=== PATIENT | male | born 1990 | race African-American/Black ===

== ENCOUNTER 2016-12-14 07:02 | Inpatient (IN) | payer OTHER ==
[2016-12-14] MEDS ORDERED: SODIUM CHLORIDE 0.9% 1000 ML INFUS.BAG IV STA (07:40)
[2016-12-14] MEDS ORDERED: ACETAMINOPHEN 1000 MG/100 ML VIAL (NON FORMULARY) IVPB ONE (07:44)
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
[2016-12-14] MEDS ORDERED: ACETAMINOPHEN INJECTION 100 ML IVPB ONE (08:05)
[2016-12-14 08:38] LABS: VENOUS PH 7.4 (7.32-7.42)
[2016-12-14 08:43] LABS: VENOUS BLOOD GAS HCO3 17.8 meq/L (19-25)
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
[2016-12-14 09:26] LABS: ALBUMIN 3.9 g/dl (3.4-5.0); ALK PHOS 88 U/L (45-117); ANION GAP 10 (8-16); BILIRUBIN,TOTAL 1.1 mg/dL (0.2-1.0); CALCIUM 9.1 mg/dL (8.5-10.1); CO2 21 mmol/L (21-32); COCKROFT - GAULT 260.99; CREATININE 0.7 mg/dL (0.7-1.3); GLUCOSE,RANDOM 85 mg/dL (74-106); SGOT/AST 62 U/L (15-37); SGPT/ALT 34 U/L (12-78); TOT PROT 8.3 g/dl (6.4-8.2)
[2016-12-14 09:37] LABS: INR 2.57 (0.82-1.09); PROTHROMBIN TIME (PATIENT) 28.8 SEC (9.98-11.88)
[2016-12-14 09:40] LABS: ACTIVATED PTT 49.5 SECONDS (26.9-34.4)
[2016-12-14] MEDS ORDERED: VANCOMYCIN 1,000 MG in DEXTROSE 5%-WATER - 250 ML IVPB ONE (10:32)
[2016-12-14] MEDS ORDERED: CEFTRIAXONE 1,000 MG in DEXTROSE 5%-WATER - 50 ML IVPB ONE (10:35)
[2016-12-14 10:38] LABS: URINE APPEARANCE TURBID; URINE BILIRUBIN NEGATIVE (NEGATIVE); URINE BLOOD NEGATIVE (NEGATIVE); URINE COLOR DKYELLOW; URINE GLUCOSE (UA) NEGATIVE (NEGATIVE); URINE KETONE NEGATIVE (NEGATIVE); URINE NITRITE NEGATIVE (NEGATIVE); URINE UROBILINOGEN NEGATIVE E.U./dl (0.2-1.0)
[2016-12-14 10:49] LABS: BASOPHIL 0.8 % (0-2.0); MCH 29.2 pg (25.7-33.7); MCHC 34.1 g/dl (32.0-35.9); MEAN CELL VOLUME 85.7 fl (80-96); MEAN PLT VOLUME 10.3 fl (7.5-11.1); NEUTROPHILS 64.3 % (42.8-82.8); PLATELET COUNT 293 K/MM3 (134-434); RDW 15.5 % (11.9-15.9); WHITE BLOOD COUNT 8.9 K/mm3 (4.0-10.0)
[2016-12-14 10:51] LABS: URINE LEUK ESTERASE 3+ (NEGATIVE); URINE PROTEIN 2+ (NEGATIVE)
[2016-12-14 10:56] LABS: URINE BACTERIA RARE /hpf (NONE SEEN); URINE MUCUS RARE; URINE RBC 7 /hpf (0-3); URINE WBC 130 /hpf (3-5)
[2016-12-14] MEDS ORDERED: VANCOMYCIN 1 GRAM (PRE-DOCKED) 250 ML IVPB ONE (11:02)
[2016-12-14] MEDS ORDERED: CEFTRIAXONE 50 ML ONE (11:02)
[2016-12-14] MEDS ORDERED: AZITHROMYCIN IVPB 500 MG in DEXTROSE 5%-WATER - 250 ML IVPB ONE (11:53)
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
--- NOTE | 2016-12-14 13:11 | EKG ---
Test Reason : Blood Pressure : / mmHG Vent. Rate : 070 BPM Atrial Rate : 070 BPM P-R Int : 178 ms QRS Dur : 094 ms QT Int : 364 ms P-R-T Axes : 055 -09 036 degrees QTc Int : 393 ms POOR DATA QUALITY, INTERPRETATION MAY BE ADVERSELY AFFECTED NORMAL SINUS RHYTHM T WAVE ABNORMALITY, CONSIDER ANTERIOR ISCHEMIA ABNORMAL ECG NO PREVIOUS ECGS AVAILABLE Confirmed by PARISH LONDONO, LIZZY ([id number]) on 12/14/2016 1:10:23 PM Referred By: Confirmed By:LIZZY LUGO MD
[2016-12-14] MEDS ORDERED: KETOROLAC TROMETHAMINE 15 MG/ML VIAL IVPUSH ONE (13:28)
[2016-12-14] MEDS ORDERED: oxyCODONE HCL 5 MG TABLET PO ONE (13:28)
[2016-12-14] MEDS ORDERED: SODIUM CHLORIDE 1,000 ML IV SCH (13:45)
[2016-12-14] MEDS ORDERED: METOCLOPRAMIDE HCL INJECTION 10 MG/2 ML VIAL IVPB PRN (14:05)
[2016-12-14] MEDS ORDERED: AZITHROMYCIN IVPB 250 ML IVPB ONE (15:30)
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
[2016-12-14 17:22] VITALS: BMI 35.4
[2016-12-14] MEDS: IPRATROPIUM BR 0.02% 0.5 MG/2.5 ML VIAL.NEB. NEB SCH (18:21)
[2016-12-14] MEDS: WARFARIN NA 2 MG TABLET (UD) PO SCH (19:30)
[2016-12-14] MEDS: GABAPENTIN 300 MG CAPSULE (FP) PO SCH (22:14)
[2016-12-14] MEDS: DOCUSATE SODIUM 100 MG CAPSULE (FP) PO SCH (22:14)
[2016-12-14] MEDS ORDERED: BACLOFEN 10 MG TABLET (FP) PO ONE (22:17)
[2016-12-15] MEDS: IPRATROPIUM BR 0.02% 0.5 MG/2.5 ML VIAL.NEB. NEB SCH ×5 (00:10→22:41)
[2016-12-15 08:11] LABS: BASOPHIL 0.5 % (0-2.0); EOSINOPHIL 1.9 % (0-4.5); MCH 29.4 pg (25.7-33.7); MCHC 34.6 g/dl (32.0-35.9); MEAN CELL VOLUME 84.9 fl (80-96); MEAN PLT VOLUME 10.1 fl (7.5-11.1); NEUTROPHILS 66.2 % (42.8-82.8); PLATELET COUNT 249 K/MM3 (134-434); RDW 15.5 % (11.9-15.9); WHITE BLOOD COUNT 7.2 K/mm3 (4.0-10.0)
[2016-12-15] MEDS ORDERED: IPRATROPIUM BR 0.02% 0.5 MG/2.5 ML VIAL.NEB. NEB PRN ×2 (08:16→12:02)
[2016-12-15 08:31] LABS: PROTHROMBIN TIME (PATIENT) 33.7 SEC (9.98-11.88)
[2016-12-15 08:42] LABS: ALBUMIN 3.4 g/dl (3.4-5.0); ANION GAP 12 (8-16); CALCIUM 9.1 mg/dL (8.5-10.1); CO2 20 mmol/L (21-32); GLUCOSE,RANDOM 90 mg/dL (74-106)
[2016-12-15 08:47] LABS: ALK PHOS 83 U/L (45-117); BILIRUBIN,TOTAL 0.7 mg/dL (0.2-1.0); COCKROFT - GAULT 326.87; CREATININE 0.6 mg/dL (0.7-1.3); SGOT/AST 39 U/L (15-37); SGPT/ALT 29 U/L (12-78); TOT PROT 7.5 g/dl (6.4-8.2)
[2016-12-15] MEDS ORDERED: IPRATROPIUM BR 0.02% 0.5 MG/2.5 ML VIAL.NEB. NEB ONE (09:00)
[2016-12-15] MEDS ORDERED: PT OWN MED DRAWER 7, Y5N ONE (09:21)
[2016-12-15] MEDS: DOCUSATE SODIUM 100 MG CAPSULE (FP) PO SCH ×4 (09:24→22:13)
[2016-12-15] MEDS: RANITIDINE HCL 150 MG TABLET (FP) PO SCH (09:24)
[2016-12-15] MEDS: GABAPENTIN 300 MG CAPSULE (FP) PO SCH ×3 (09:25→22:13)
[2016-12-15] MEDS: SENNOSIDES 8.6MG TABLET (FP) PO SCH ×2 (09:25→09:30)
[2016-12-15] MEDS: BACLOFEN 10 MG TABLET (FP) PO SCH (09:25)
[2016-12-15] MEDS: CEFTRIAXONE 50 ML IVPB SCH (09:28)
[2016-12-15] MEDS ORDERED: AZITHROMYCIN IVPB 250 MG in DEXTROSE 5%-WATER - 250 ML IVPB SCH (10:00)
[2016-12-15] MEDS: ACETAMINOPHEN 325 MG TABLET (FP) PO PRN (11:15)
--- NOTE | 2016-12-15 11:53 | PN ---
Progress Note (short form) - Note Progress Note: Awake and alert on vent. Still with some congested cough. Intake & Output 12/12/16 12/13/16 12/14/16 12/15/16 23:59 23:59 23:59 23:59 Intake Total 1720 300 Output Total 650 650 Balance 1070 -350 Weight 268 lb 6 oz Last Vital Signs Temp Pulse Resp BP Pulse Ox 98.4 F 87 25 H 122/64 98 12/15/16 09:16 12/15/16 09:59 12/15/16 09:59 12/15/16 09:16 12/15/16 09:59 Active Medications Acetaminophen (Tylenol -) 650 mg PO Q4H PRN PRN Reason: FEVER OR PAIN Last Admin: 12/15/16 11:15 Dose: 650 mg Baclofen (Lioresal -) 10 mg PO DAILY [facility] Last Admin: 12/15/16 09:25 Dose: 10 mg Diphenhydramine HCl (Benadryl Injection -) 12.5 mg IVPUSH Q6H PRN PRN Reason: HEADACHE Docusate Sodium (Colace -) 100 mg PO BID [facility] Last Admin: 12/15/16 09:24 Dose: 100 mg Gabapentin (Neurontin -) 300 mg PO BID [facility] Last Admin: 12/15/16 09:25 Dose: 300 mg Azithromycin 250 mg/ Dextrose 250 mls @ 250 mls/hr IVPB DAILY [facility] Stop: 12/18/16 10:59 Last Admin: 12/15/16 11:04 Dose: 250 mls/hr Ceftriaxone Sodium (Rocephin 1gm Ivpb (Pre-Docked)) 50 mls @ 100 mls/hr IVPB DAILY [facility] Last Admin: 12/15/16 09:28 Dose: 100 mls/hr Ipratropium [place] (Atrovent 0.02% Nebulizer -) 1 amp NEB QIDR [facility] Last Admin: 12/15/16 11:36 Dose: 1 amp Metoclopramide HCl (Reglan Injection -) 10 mg IVPB Q6H PRN PRN Reason: HEADACHE Ranitidine HCl (Zantac -) 150 mg PO DAILY [facility] Last Admin: 12/15/16 09:24 Dose: 150 mg Senna (Senna -) 1 tab PO DAILY [facility] Last Admin: 12/15/16 09:25 Dose: 1 tab Warfarin Sodium (Coumadin -) 4 mg PO DAILY@1800 JERRY Last Admin: 12/14/16 19:30 Dose: 4 mg Constitutional: Yes: Awake and alert, NAD on vent Eyes: Yes: EOM Intact HENT: Yes: Normocephalic Neck: Yes: TRACH Cardiovascular: Yes: S1, S2 Respiratory: Yes: Diminished, few adventitious sounds Gastrointestinal: Yes: Abdomen, Obese Edema: No Integumentary: Yes: WNL Neurological: Yes: Alert Psychiatric: Yes: Alert Labs: Laboratory Results - last 24 hr 12/14/16 12/14/16 12/14/16 08:33 12:30 16:45 WBC RBC Hgb Hct MCV MCHC RDW Plt Count MPV Neutrophils % Lymphocytes % Monocytes % Eosinophils % Basophils % INR Sodium Potassium Chloride Carbon Dioxide Anion Gap BUN Creatinine Creat Clearance w eGFR Random Glucose Lactic Acid 2.418 H* 1.415 Calcium Total Bilirubin AST ALT Alkaline Phosphatase Total Protein Albumin Ur Specific Hernandez 1.015 12/15/16 12/15/16 12/15/16 07:00 07:00 07:00 WBC 7.2 RBC 4.88 Hgb 14.4 Hct 41.5 MCV 84.9 MCHC 34.6 RDW 15.5 Plt Count 249 MPV 10.1 Neutrophils % 66.2 Lymphocytes % 23.8 Monocytes % 7.6 Eosinophils % 1.9 Basophils % 0.5 INR 3.00 H Sodium 141 Potassium 3.7 Chloride 109 H Carbon Dioxide 20 L Anion Gap 12 BUN 7 D Creatinine 0.6 L Creat Clearance w eGFR > 60 Random Glucose 90 Lactic Acid Calcium 9.1 Total Bilirubin 0.7 D AST 39 H D ALT 29 Alkaline Phosphatase 83 Total Protein 7.5 Albumin 3.4 Ur Specific Hernandez Problem List - Problems (1) Headache Code(s): R51 - HEADACHE (2) Quadriplegia Code(s): G82.50 - QUADRIPLEGIA, UNSPECIFIED (3) Ventilator dependence Code(s): Z99.11 - DEPENDENCE ON RESPIRATOR [VENTILATOR] STATUS Assessment/Plan Current vent settings Can wean as tolerated Brovana + atrovent Patient defers the use of Albuterol since he deve,ops palpitations ABX Suction as needed If he remains stable overnight -> Can likely change to oral ABX and D/C tomorrow Dr Marsh
[2016-12-15] MEDS: ARFORMOTEROL TARTRATE 15 MCG/2 ML VIAL NEB SCH ×2 (12:20→22:41)
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
[2016-12-15] MEDS ORDERED: PROCHLORPERAZINE INJECTION 10 MG/2 ML VIAL IVPB ONE (14:29)
[2016-12-15] MEDS ORDERED: SODIUM PHOSPHATE/NA BIPHOS 133 ML ENEMA PR ONE (14:38)
[2016-12-15] MEDS ORDERED: WARFARIN NA 2 MG TABLET (UD) PO SCH (18:00)
[2016-12-15] MEDS: WARFARIN NA 2 MG TABLET (UD) PO SCH (18:50)
[2016-12-16] MEDS: ACETAMINOPHEN 325 MG TABLET (FP) PO PRN (01:19)
[2016-12-16 09:50] LABS: INR 2.97 (0.82-1.09)
[2016-12-16 09:52] LABS: ACTIVATED PTT 49.9 SECONDS (26.9-34.4)
[2016-12-16] MEDS: DOCUSATE SODIUM 100 MG CAPSULE (FP) PO SCH ×2 (09:59→22:31)
[2016-12-16] MEDS: RANITIDINE HCL 150 MG TABLET (FP) PO SCH (09:59)
[2016-12-16] MEDS: BACLOFEN 10 MG TABLET (FP) PO SCH (09:59)
[2016-12-16] MEDS: SENNOSIDES 8.6MG TABLET (FP) PO SCH (09:59)
[2016-12-16] MEDS: CEFTRIAXONE 50 ML IVPB SCH (09:59)
[2016-12-16] MEDS: GABAPENTIN 300 MG CAPSULE (FP) PO SCH ×2 (09:59→22:31)
[2016-12-16] MEDS: ARFORMOTEROL TARTRATE 15 MCG/2 ML VIAL NEB SCH ×2 (10:28→22:53)
[2016-12-16] MEDS: IPRATROPIUM BR 0.02% 0.5 MG/2.5 ML VIAL.NEB. NEB SCH ×2 (10:28→22:53)
[2016-12-16 10:30] LABS: COCKROFT - GAULT 392.25; CREATININE 0.5 mg/dL (0.7-1.3)
--- NOTE | 2016-12-16 11:31 | DS ---
Physical Exam: SUBJECTIVE: Patient seen and examined OBJECTIVE: Vital Signs Period Temp Pulse Resp BP Sys/Wood Pulse Ox Last 24 Hr 98.1 F-99.0 F 65-97 18-24 115-154/52-85 PHYSICAL EXAM GENERAL: The patient is awake, alert, and fully oriented, in no acute distress. HEAD: Normal with no signs of trauma. EYES: PERRL, extraocular movements intact, sclera anicteric, conjunctiva clear. ENT: Ears normal, nares patent, oropharynx clear without exudates, moist mucous membranes. NECK: Trachea midline, full range of motion, supple. LUNGS: Breath sounds equal, clear to auscultation bilaterally, no wheezes, no crackles, no accessory muscle use. HEART: Regular rate and rhythm, S1, S2 without murmur, rub or gallop. ABDOMEN: Soft, nontender, nondistended, normoactive bowel sounds, no guarding, no rebound, no hepatosplenomegaly, no masses. EXTREMITIES: 2+ pulses, warm, well-perfused, no edema. NEUROLOGICAL: Cranial nerves II through XII grossly intact. Normal speech, gait not observed. PSYCH: Normal mood, normal affect. SKIN: Warm, dry, normal turgor, no rashes or lesions noted. LABS Laboratory Results - last 24 hr 12/16/16 12/16/16 08:00 08:00 INR 2.97 H PTT (Actin FS) 49.9 H Fibrinogen 397.0 Fibrin Degrad Products Less than 10 Sodium 141 Potassium 3.6 Chloride 109 H Carbon Dioxide 19 L Anion Gap 13 BUN 9 D Creatinine 0.5 L Random Glucose 78 Calcium 9.0 HOSPITAL COURSE: Date of Admission:12/14/16 Date of Discharge: 12/16/16 Discharge Summary Reason For Visit: PNEUMONIA Current Active Problems DVT prophylaxis (Acute) Headache (Acute) Pneumonia (Acute) Quadriplegia (Acute) UTI (urinary tract infection) (Acute) Ventilator dependence (Acute) Condition: Stable - Home Medications Comprehensive Discharge Medication List: Ambulatory Orders Baclofen 20 mg PO TID 12/14/16 Docusate Sodium [Colace -] 100 mg PO BID 12/14/16 Gabapentin 600 mg PO TID 12/14/16 Ranitidine HCl 150 mg PO DAILY 12/14/16 Sennosides [Senna] 8.6 mg PO HS MDD 2 tablets 12/14/16 Warfarin Sodium 4 mg PO DAILY 12/14/16 Fleet Adult Rectal Enema - 1 bottle MD Q2D 12/15/16 Multivitamin 1 tablet PO ONCE 12/15/16 Vitamin C 500 mg PO BID 12/15/16
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
[2016-12-16 16:09] LABS: MCH 28.3 pg (25.7-33.7); MCHC 32.9 g/dl (32.0-35.9); MEAN CELL VOLUME 86.2 fl (80-96); MEAN PLT VOLUME 10.5 fl (7.5-11.1); PLATELET COUNT 257 K/MM3 (134-434); RDW 15.7 % (11.9-15.9); WHITE BLOOD COUNT 5.2 K/mm3 (4.0-10.0)
[2016-12-16] MEDS: WARFARIN NA 2 MG TABLET (UD) PO SCH (17:48)
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
[2016-12-16 20:50] LABS: PLATELET ESTIMATE ADEQUATE (NORMAL)
[2016-12-17] MEDS: IPRATROPIUM BR 0.02% 0.5 MG/2.5 ML VIAL.NEB. NEB SCH (09:33)
[2016-12-17] MEDS: ARFORMOTEROL TARTRATE 15 MCG/2 ML VIAL NEB SCH (09:34)
[2016-12-17] MEDS ORDERED: PT OWN MED DRAWER 7, Y5N ONE (10:27)
[2016-12-17] MEDS: CEFTRIAXONE 50 ML IVPB SCH (10:30)
[2016-12-17] MEDS: RANITIDINE HCL 150 MG TABLET (FP) PO SCH (10:30)
[2016-12-17] MEDS: SENNOSIDES 8.6MG TABLET (FP) PO SCH (10:30)
[2016-12-17] MEDS: DOCUSATE SODIUM 100 MG CAPSULE (FP) PO SCH (10:30)
[2016-12-17] MEDS: BACLOFEN 10 MG TABLET (FP) PO SCH (10:30)
[2016-12-17] MEDS: GABAPENTIN 300 MG CAPSULE (FP) PO SCH (10:30)
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
[2016-12-17 15:46] VITALS: BP 108/53; PULSE 93; TEMP 99.1
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
== END 2016-12-17 17:00 | disposition home or self-care (01) | DRG 466 ==
LOC: JER 07:02 → JERBED 10:37 → J5S 12:54
PROVIDERS: ADMIT Internal Medicine; ATTEND Internal Medicine
PROC: 5A1945Z Respiratory Ventilation, 24-96 Consecutive Hours (ICD-10-PCS; principal; 2016-12-14)
DX: T83.511A Infection and inflammatory reaction due to indwelling urethral catheter, initial encounter (principal); N39.0 Urinary tract infection, site not specified; Y84.6 Urinary catheterization as the cause of abnormal reaction of the patient, or of later complication, without mention of misadventure at the time of the procedure; G82.50 Quadriplegia, unspecified; S14.159S Other incomplete lesion at unspecified level of cervical spinal cord, sequela; Y24.9XXS Unspecified firearm discharge, undetermined intent, sequela; R51 Headache; Z99.11 Dependence on respirator [ventilator] status; J98.11 Atelectasis; Z86.718 Personal history of other venous thrombosis and embolism; Z79.01 Long term (current) use of anticoagulants; J96.10 Chronic respiratory failure, unspecified whether with hypoxia or hypercapnia; Z93.0 Tracheostomy status
CPT/HCPCS: 36415; 71010-TC; 80048; 80053; 81003; 81015; 82803; 83605; 85025; 85362; 85384; 85610; 85730; 87040; 87070; 87086; 87186; 87205; 93005; 93010; 94002; 94640; 99285-25; J0475

== ENCOUNTER 2020-06-07 21:54 | Inpatient (IN) | payer OTHER ==
[2020-06-07 22:20] LABS: ARTERIAL BLD GAS O2 SATURATION 98.2 mmHg (95-98); ARTERIAL BLOOD GAS BASE EXCESS -6.1 mmol/L (-2-2); ARTERIAL BLOOD GAS PO2 118.2 mmHg (80-100); ARTERIAL BLOOD GAS pH 7.365 (7.350-7.450)
[2020-06-07 22:21] LABS: ALLENS TEST POSITIVE; BASO % 0.3 % (0-2.0); EOS % 0.2 % (0-4.5); HEMATOCRIT 36.9 % (35.4-49); HEMOGLOBIN 12.4 GM/dL (11.7-16.9); LYMPH % 3.7 % (8-40); MCH 29.5 pg (25.7-33.7); MCHC 33.7 g/dl (32.0-35.9); MEAN CELL VOLUME 87.6 fl (80-96); MONO % 5.9 % (3.8-10.2); NEUT % 89.9 % (42.8-82.8); PLATELET COUNT 293 K/MM3 (134-434); PT'S TEMP 98.6; RBC 4.21 M/mm3 (4.00-5.60); RDW 16.1 % (11.9-15.9); WHITE BLOOD COUNT 22.9 K/mm3 (4.0-10.0)
[2020-06-07] MEDS ORDERED: ACETAMINOPHEN INJECTION 100 ML IVPB ONE (22:21)
[2020-06-07 22:22] LABS: VENT RATE 14
[2020-06-07] MEDS ORDERED: VANCOMYCIN 1 GM in D5W (PRE-DOCKED) 1,000 MG/250 ML IVPB ONE (22:37)
[2020-06-07] MEDS ORDERED: SODIUM CHLORIDE 0.9% 500 ML INFUS.BAG IV ONE (22:37)
[2020-06-07] MEDS ORDERED: ACETAMINOPHEN 1000 MG/100 ML VIAL (NON FORMULARY) IVPB ONE (22:37)
[2020-06-07] MEDS ORDERED: PIPERACILLIN/TAZOB 3.375 GM 3.375 GM in DEXTROSE 5%-WATER - 50 ML IVPB ONE (22:37)
[2020-06-07 22:41] LABS: INR 1.99 (0.83-1.09); PROTHROMBIN TIME (PATIENT) 23.6 SEC (9.7-13.0)
[2020-06-07 22:42] LABS: POTASSIUM 3.4 mmol/L (3.5-5.1)
[2020-06-07 22:43] LABS: ACTIVATED PTT 35.4 SECONDS (25.2-36.5)
[2020-06-07 22:44] LABS: ALBUMIN 3.2 g/dl (3.4-5.0); BLOOD UREA NITROGEN 27.8 mg/dL (7-18); CALCIUM 8.5 mg/dL (8.5-10.1)
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
[2020-06-07 22:47] LABS: CREATININE 2.6 mg/dL (0.55-1.3)
[2020-06-07 22:49] LABS: EPI CELLS 9 /uL (0-25.1); HYALINE CASTS 15 /uL (0-3.1); PH,URINE 5.5 (5.0-8.0); URINE APPEARANCE TURBID; URINE BILIRUBIN 1+ (NEGATIVE); URINE COLOR ORANGE; URINE GLUCOSE (UA) NEGATIVE (NEGATIVE); URINE KETONE NEGATIVE (NEGATIVE); URINE LEUK ESTERASE 3+ (NEGATIVE); URINE NITRITE NEGATIVE (NEGATIVE); URINE PROTEIN 3+ (NEGATIVE); URINE WBC 14751 /uL (0-25.8)
[2020-06-07 22:49] LABS: BILIRUBIN,TOTAL 3.2 mg/dL (0.2-1); TOT PROT 7.5 g/dl (6.4-8.2)
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
[2020-06-07] MEDS ORDERED: VANCOMYCIN 1 GRAM (PRE-DOCKED) 1,000 MG/250 ML BAG IVPB ONE (22:50)
[2020-06-07] MEDS ORDERED: PIPERACILLIN/TAZOB 3.375 GM 3.375 GM/50 ML BAG IVPB ONE (22:51)
[2020-06-07 23:12] LABS: URINE BACTERIA 3459.6 /uL (0-1359); URINE RBC 3551.8 /uL (0-23.9); YEAST NEGATIVE (NEGATIVE)
[2020-06-07 23:19] LABS: ANISOCYTOSIS 0; HELMET CELLS 0; HOWELL-JOLLY BODIES 0; MACROCYTOSIS 0; OVALOCYTE 0; PLATELET ESTIMATE NORMAL; ROULEAU 0; SICKELED CELLS 0; TARGET CELLS 0; TEAR DROP CELLS 0; TOXIC GRANULATION 0
[2020-06-08] MEDS ORDERED: SODIUM CHLORIDE 0.9% 500 ML INFUS.BAG IV ONE (00:11)
[2020-06-08] MEDS ORDERED: VANCOMYCIN 1,000 MG in DEXTROSE 5%-WATER - 250 ML IVPB ONE ×2 (00:54→06:00)
[2020-06-08] MEDS ORDERED: KCL 10 MEQ IVPB 10 MEQ/100 ML INFUS.BAG IVPB SCH (01:00)
[2020-06-08] MEDS ORDERED: KCL 10 MEQ IVPB 10 MEQ/100 ML INFUS.BAG IVPB ONE (01:13)
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
[2020-06-08] MEDS ORDERED: SODIUM CHLORIDE 1,000 ML IV STA (03:17)
[2020-06-08] MEDS ORDERED: ACETAMINOPHEN 1000 MG/100 ML VIAL (NON FORMULARY) IVPB PRN (03:17)
[2020-06-08] MEDS: SODIUM CHLORIDE 1,000 ML IV SCH (03:26)
[2020-06-08] MEDS: NOREPINEPHRINE NS PREMIX 8,000 MCG/500 ML BAG IVPB SCH ×2 (03:53→23:08)
[2020-06-08] MEDS ORDERED: PIPERACILLIN/TAZOBACTAM 3.375 GM VIAL IVPB ONE ×2 (05:43→09:22)
[2020-06-08] MEDS ORDERED: DEXTROSE 5%-WATER - 50 ML IVPB ONE ×2 (05:43→09:22)
[2020-06-08] MEDS: PIPERACILLIN/TAZOB 3.375 GM 3.375 GM in DEXTROSE 5%-WATER - 50 ML IVPB SCH ×2 (05:45→09:27)
[2020-06-08] MEDS ORDERED: HEPARIN NA (PORCINE) 5,000 UNITS/ML 1ML VIAL SQ SCH (06:00)
[2020-06-08 06:22] LABS: BASO % 0.2 % (0-2.0); HEMATOCRIT 33.7 % (35.4-49); HEMOGLOBIN 11.2 GM/dL (11.7-16.9); LYMPH % 1.6 % (8-40); MCH 28.8 pg (25.7-33.7); MCHC 33.1 g/dl (32.0-35.9); MEAN CELL VOLUME 87.1 fl (80-96); MEAN PLT VOLUME 10.3 fl (7.5-11.1); MONO % 5.4 % (3.8-10.2); NEUT % 92.8 % (42.8-82.8); PLATELET COUNT 267 K/MM3 (134-434); RBC 3.87 M/mm3 (4.00-5.60); WHITE BLOOD COUNT 25.1 K/mm3 (4.0-10.0)
[2020-06-08 06:26] LABS: INR 2.15 (0.83-1.09); PROTHROMBIN TIME (PATIENT) 25.4 SEC (9.7-13.0)
[2020-06-08 06:43] LABS: CALCIUM 8.3 mg/dL (8.5-10.1)
[2020-06-08 06:44] LABS: ALBUMIN 2.9 g/dl (3.4-5.0); BLOOD UREA NITROGEN 28.8 mg/dL (7-18); MAGNESIUM 1.5 mg/dL (1.8-2.4)
[2020-06-08 06:47] LABS: CREATININE 2.4 mg/dL (0.55-1.3); PHOSPHOROUS 5.1 mg/dL (2.5-4.9)
[2020-06-08 06:48] LABS: BILIRUBIN,TOTAL 2.8 mg/dL (0.2-1); TOT PROT 6.9 g/dl (6.4-8.2)
[2020-06-08] MEDS ORDERED: MAGNESIUM 2GM/50ML STERILE WATER IVPB IVPB ONE (09:30)
--- NOTE | 2020-06-08 09:56 | EKG ---
Test Reason : Blood Pressure : / mmHG Vent. Rate : 103 BPM Atrial Rate : 103 BPM P-R Int : 156 ms QRS Dur : 100 ms QT Int : 332 ms P-R-T Axes : 057 015 033 degrees QTc Int : 434 ms SINUS TACHYCARDIA POSSIBLE LEFT ATRIAL ENLARGEMENT INCOMPLETE RIGHT BUNDLE BRANCH BLOCK BORDERLINE ECG WHEN COMPARED WITH ECG OF 07-JUN-2020 22:20, NO SIGNIFICANT CHANGE WAS FOUND Confirmed by YAIR PRO MD ([id number]) on 06/08/2020 9:56:31 AM Referred By: Confirmed By:YAIR PRO MD
[2020-06-08 09:58] LABS: ANISOCYTOSIS 0; MACROCYTOSIS 0; PLATELET ESTIMATE NORMAL
[2020-06-08] MEDS ORDERED: VANCOMYCIN 1 GRAM (PRE-DOCKED) 1,000 MG/250 ML BAG IVPB SCH (10:00)
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
[2020-06-08] MEDS: MUPIROCIN 2% TOPICAL OINTMENT FOR DECOLONIZATION NS SCH ×2 (11:00→22:33)
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
[2020-06-08] MEDS: BACLOFEN 10 MG TABLET (FP) PO SCH ×2 (15:15→22:34)
[2020-06-08] MEDS: GABAPENTIN 300 MG CAPSULE PO SCH ×2 (15:16→22:34)
[2020-06-08] MEDS ORDERED: MEROPENEM 1 GM VIAL (RESTRICTED TO ID) IVPB ONE (15:39)
[2020-06-08] MEDS ORDERED: DEXTROSE 5%-WATER 100 ML IVPB ONE (15:39)
[2020-06-08] MEDS: MEROPENEM 1 GM in DEXTROSE 5%-WATER 100 ML IVPB SCH (15:55)
[2020-06-08] MEDS ORDERED: PT OWN MED DRAWER 7, Y5N ONE ×2 (16:15→21:59)
[2020-06-08] MEDS ORDERED: SODIUM CHLORIDE 500 ML IV STA (18:34)
[2020-06-08] MEDS ORDERED: PIPERACILLIN/TAZOB 3.375 GM 3.375 GM in DEXTROSE 5%-WATER - 50 ML IVPB SCH (22:00)
[2020-06-08] MEDS: CHLORHEXIDINE GLUCONATE 4% CLEANSER FOR DECOLONIZATION TP SCH (22:34)
[2020-06-08] MEDS: APIXABAN 5 MG TABLET PO SCH (22:34)
[2020-06-08] MEDS ORDERED: NOREPINEPHRINE BITARTRATE 8,000 MCG/500 ML BAG IVPB ONE (22:57)
[2020-06-09] MEDS ORDERED: DEXTROSE 5%-WATER 100 ML IVPB ONE ×3 (01:07→18:24)
[2020-06-09] MEDS ORDERED: MEROPENEM 1 GM VIAL (RESTRICTED TO ID) IVPB ONE ×3 (01:07→18:23)
[2020-06-09] MEDS: MEROPENEM 1 GM in DEXTROSE 5%-WATER 100 ML IVPB SCH ×3 (01:10→18:27)
[2020-06-09] MEDS: SODIUM CHLORIDE 1,000 ML IV SCH ×2 (01:10→09:02)
[2020-06-09] MEDS ORDERED: ACETAMINOPHEN 1000 MG/100 ML VIAL (NON FORMULARY) IVPB PRN (02:56)
[2020-06-09] MEDS ORDERED: LORazepam 2 MG/ML SDV VIAL ONE ×2 (03:08→13:23)
[2020-06-09] MEDS ORDERED: LORazepam 2 MG/ML SDV VIAL IVPUSH ONE ×2 (03:13→13:12)
[2020-06-09 03:54] LABS: ARTERIAL BLD GAS O2 SATURATION 98.5 mmHg (95-98); ARTERIAL BLOOD GAS BASE EXCESS -8.2 mmol/L (-2-2); ARTERIAL BLOOD GAS PO2 141.6 mmHg (80-100); ARTERIAL BLOOD GAS pH 7.286 (7.350-7.450)
[2020-06-09 03:55] LABS: ALLENS TEST POSITIVE; VENT MODE A/C; VENT RATE 14
[2020-06-09] MEDS: BACLOFEN 10 MG TABLET (FP) PO SCH ×3 (05:14→21:16)
[2020-06-09] MEDS: GABAPENTIN 300 MG CAPSULE PO SCH ×3 (05:15→21:16)
[2020-06-09 07:08] LABS: BASO % 0.4 % (0-2.0); EOS % 0.9 % (0-4.5); HEMATOCRIT 34.9 % (35.4-49); HEMOGLOBIN 11.5 GM/dL (11.7-16.9); LYMPH % 2.7 % (8-40); MCH 28.5 pg (25.7-33.7); MCHC 32.9 g/dl (32.0-35.9); MEAN CELL VOLUME 86.9 fl (80-96); MEAN PLT VOLUME 10.1 fl (7.5-11.1); MONO % 7.5 % (3.8-10.2); NEUT % 88.5 % (42.8-82.8); PLATELET COUNT 249 K/MM3 (134-434); RBC 4.02 M/mm3 (4.00-5.60); RDW 16.6 % (11.9-15.9)
[2020-06-09 07:31] LABS: BLOOD UREA NITROGEN 25.6 mg/dL (7-18); POTASSIUM 3.9 mmol/L (3.5-5.1)
[2020-06-09 07:35] LABS: MAGNESIUM 2.1 mg/dL (1.8-2.4)
[2020-06-09 07:38] LABS: CREATININE 1.2 mg/dL (0.55-1.3); PHOSPHOROUS 3.4 mg/dL (2.5-4.9)
[2020-06-09 07:39] LABS: BILIRUBIN,TOTAL 1.3 mg/dL (0.2-1); TOT PROT 7.1 g/dl (6.4-8.2)
[2020-06-09 07:43] LABS: ALBUMIN 2.8 g/dl (3.4-5.0)
[2020-06-09] MEDS ORDERED: ALBUTEROL SO4 2.5/IPRATROPIUM 0.5 INH SOL 3 ML VIAL.NEB. NEB ONE (08:40)
[2020-06-09] MEDS: NOREPINEPHRINE NS PREMIX 8,000 MCG/500 ML BAG IVPB SCH (09:02)
[2020-06-09 09:46] LABS: ANISOCYTOSIS 1+; MACROCYTOSIS 0; PLATELET ESTIMATE NORMAL
[2020-06-09] MEDS: MUPIROCIN 2% TOPICAL OINTMENT FOR DECOLONIZATION NS SCH ×2 (10:14→22:12)
[2020-06-09] MEDS: APIXABAN 5 MG TABLET PO SCH ×3 (10:19→21:16)
[2020-06-09] MEDS ORDERED: ALBUTEROL SO4 2.5/IPRATROPIUM 0.5 INH SOL 3 ML VIAL.NEB. NEB PRN (11:55)
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
--- NOTE | 2020-06-09 13:39 | PN ---
Progress Note (short form) - Note Progress Note: just received some ativan off pressors - stopped this am Vital Signs Period Temp Pulse Resp BP Sys/Wood Pulse Ox Last 24 Hr 97.9 F-101 F 74-118 15-99 79-121/51-80 92-100 cor-rrr lungs rhonchi trach to vent abd soft +SPT (changed by urology) ext no edema CBC, BMP 06/09/20 06:40 06/09/20 06:40 Microbiology 06/07/20 22:05 Blood - Peripheral Venous Blood Culture - Preliminary Lactose Fermenting Neg Bacilli 06/07/20 22:20 Blood - Peripheral Venous Blood Culture - Preliminary Lactose Fermenting Neg Bacilli 06/07/20 22:20 Urine - Urine Méndez Urine Culture - Preliminary Lactose Fermenting Neg Bacilli Proteus Species cxray - elevated right hemidiaphragm- ?atelectasis/infiltrate right base Active Medications Acetaminophen (Ofirmev Injection -) 1,000 mg IVPB Q6H PRN PRN Reason: PAIN LEVEL 7 - 10 Stop: 06/10/20 02:56 Albuterol/Ipratropium (Duoneb -) 1 amp NEB Q6H PRN PRN Reason: SHORTNESS OF BREATH Apixaban (Eliquis -) 5 mg PO BID [facility] Last Admin: 06/09/20 10:29 Dose: Not Given Documented by: Baclofen (Lioresal -) 20 mg PO TID [facility] Last Admin: 06/09/20 13:43 Dose: Not Given Documented by: Chlorhexidine Gluconate (Hibiclens For Decolonization -) 1 applic TP HS [facility] Last Admin: 06/08/20 22:34 Dose: 1 applic Documented by: Fentanyl (Sublimaze Injection -) 50 mcg IVPUSH ONCE ONE Stop: 06/09/20 13:13 Last Admin: 06/09/20 13:24 Dose: 50 mcg Documented by: Gabapentin (Neurontin -) 600 mg PO TID [facility] Last Admin: 06/09/20 13:43 Dose: Not Given Documented by: Sodium Chloride (Normal Saline -) 1,000 mls @ 125 mls/hr IV ASDIR [facility] Last Admin: 06/09/20 09:02 Dose: 125 mls/hr Documented by: Norepinephrine Bitartrate (Levophed Bag - Ns) 8,000 mcg in 500 mls @ 18.75 mls/hr IVPB TITR JERRY; Protocol Last Titration: 06/09/20 11:35 Dose: 0 mcg/min, 0 mls/hr Documented by: Meropenem 1 gm/ Dextrose 100 mls @ 200 mls/hr IVPB Q8H-IV JERRY Last Admin: 06/09/20 10:19 Dose: 200 mls/hr Documented by: Lorazepam (Ativan Injection -) 2 mg IVPUSH ONCE ONE Stop: 06/09/20 13:13 Last Admin: 06/09/20 13:23 Dose: 2 mg Documented by: Mupirocin (Bactroban Ointment (For Decolonization) -) 1 applic NS BID JERRY Stop: 06/13/20 09:59 Last Admin: 06/09/20 10:14 Dose: 1 applic Documented by: a/p gram negative sepsis/bacteremia- continue meropenem, apparently recent admission to hospital in the [place] renal function now normal bilateral hydro on US- seen by urology ?biliary disease- consider GI evaluation quadraplegia with chronic resp failure persistent leukocytosis 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 Problem List - Problems (1) Sepsis Code(s): A41.9 - SEPSIS, UNSPECIFIED ORGANISM Qualifiers: Sepsis type: sepsis due to unspecified organism Sepsis acute organ dysfunction status: unspecified Qualified Code(s): A41.9 - Sepsis, unspecified organism (2) ROMA (acute kidney injury) Code(s): N17.9 - ACUTE KIDNEY FAILURE, UNSPECIFIED (3) UTI (urinary tract infection) Code(s): N39.0 - URINARY TRACT INFECTION, SITE NOT SPECIFIED Qualifiers: Urinary tract infection type: site unspecified Hematuria presence: with hematuria Qualified Code(s): N39.0 - Urinary tract infection, site not specified; R31.9 - Hematuria, unspecified (4) Ventilator dependence Code(s): Z99.11 - DEPENDENCE ON RESPIRATOR [VENTILATOR] STATUS (5) Quadriplegia Code(s): G82.50 - QUADRIPLEGIA, UNSPECIFIED
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
[2020-06-09] MEDS: CHLORHEXIDINE GLUCONATE 4% CLEANSER FOR DECOLONIZATION TP SCH (22:12)
[2020-06-10] MEDS ORDERED: MEROPENEM 1 GM VIAL (RESTRICTED TO ID) IVPB ONE ×2 (01:58→09:08)
[2020-06-10] MEDS ORDERED: DEXTROSE 5%-WATER 100 ML IVPB ONE ×2 (01:59→09:08)
[2020-06-10] MEDS: MEROPENEM 1 GM in DEXTROSE 5%-WATER 100 ML IVPB SCH ×2 (02:02→09:10)
[2020-06-10] MEDS: SODIUM CHLORIDE 1,000 ML IV SCH ×2 (05:29→18:40)
[2020-06-10] MEDS: BACLOFEN 10 MG TABLET (FP) PO SCH ×4 (05:30→22:32)
[2020-06-10] MEDS: GABAPENTIN 300 MG CAPSULE PO SCH ×3 (05:30→22:19)
--- NOTE | 2020-06-10 07:25 | PN.GI ---
GI Progress Note Subjective: PATIENT WAS HYPOTHERMIC THIS AM, PER RN AND PATIENT NO ABDOMINAL PAIN / NAUSEA/ VOMITING - Objective Vital Signs: Vital Signs Temperature 94.5 F L 06/10/20 06:00 Pulse Rate 77 06/10/20 06:00 Respiratory Rate 16 06/10/20 06:00 Blood Pressure 120/80 06/10/20 06:00 O2 Sat by Pulse Oximetry (%) 95 06/10/20 06:00 Constitutional: No Distress, Calm Respiratory: Yes: WNL, Regular, CTA Bilaterally Gastrointestinal Inspection: Yes: WNL ...Auscultate: Yes: Normoactive Bowel Sounds, Other (OBESE) Labs: CBC, BMP 06/09/20 06:40 06/09/20 06:40 INR, PTT INR 2.15 (0.83-1.09) H 06/08/20 06:01 Fibrinogen > 500.0 mg/dL (238-498) H 06/08/20 06:00 Assessment/Plan iMPRESSION: SEPSIS MOST LIKELY UROSEPSIS CT SCAN WITHOUT CONTRAST REVIEWED - NO DEFINITIVE EVIDENCE OF ACUTE CHOLECYSTITIS. C/W ABX / MICU CARE MONITOR LFT'S SURGERY F/U
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
[2020-06-10] MEDS: MUPIROCIN 2% TOPICAL OINTMENT FOR DECOLONIZATION NS SCH ×2 (09:10→22:32)
[2020-06-10] MEDS ORDERED: ENOXAPARIN NA (PORCINE) 40 MG/0.4 ML DISP.SYRIN SQ SCH (10:00)
[2020-06-10] MEDS: APIXABAN 5 MG TABLET PO SCH ×2 (10:00→22:32)
[2020-06-10] MEDS ORDERED: ENOXAPARIN NA (PORCINE) 120 MG/0.8 ML DISP.SYRIN SQ SCH (10:00)
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
[2020-06-10 12:18] LABS: HEMATOCRIT 34.6 % (35.4-49); HEMOGLOBIN 11.2 GM/dL (11.7-16.9); MCH 28.9 pg (25.7-33.7); MCHC 32.5 g/dl (32.0-35.9); MEAN PLT VOLUME 10.6 fl (7.5-11.1); PLATELET COUNT 205 K/MM3 (134-434); RBC 3.89 M/mm3 (4.00-5.60); RDW 17.1 % (11.9-15.9); WHITE BLOOD COUNT 18.2 K/mm3 (4.0-10.0)
[2020-06-10] MEDS: ACETYLCYSTEINE 20% 200MG/ML 4 ML VIAL *FOR ORAL / INH USE ONLY NEB SCH ×3 (12:30→21:00)
[2020-06-10] MEDS: ALBUTEROL SO4 0.083% IH SOL 2.5 MG/3 ML VIAL.NEB. NEB PRN ×3 (12:30→21:00)
[2020-06-10 12:49] LABS: POTASSIUM 4.2 mmol/L (3.5-5.1)
[2020-06-10 12:51] LABS: ALBUMIN 2.6 g/dl (3.4-5.0); BLOOD UREA NITROGEN 21.6 mg/dL (7-18); CALCIUM 9.1 mg/dL (8.5-10.1); MAGNESIUM 2.2 mg/dL (1.8-2.4)
[2020-06-10 12:54] LABS: CREATININE 0.5 mg/dL (0.55-1.3)
[2020-06-10 12:55] LABS: PHOSPHOROUS 2.6 mg/dL (2.5-4.9)
[2020-06-10 12:56] LABS: BILIRUBIN,TOTAL 0.7 mg/dL (0.2-1)
[2020-06-10] MEDS ORDERED: PT OWN MED DRAWER 7, Y5N ONE ×3 (15:21→22:36)
--- NOTE | 2020-06-10 16:25 | PN ---
Progress Note (short form) - Note Progress Note: more awake today trach to vent requesting suctioning Vital Signs Period Temp Pulse Resp BP Sys/Wood Pulse Ox Last 24 Hr 94.5 F-98.4 F 63-93 16-24 96-132/55-90 93-99 cor-rrr lungs decreased bs at bases abd soft,nt +SPT ext no edema CBC, BMP 06/10/20 11:15 06/10/20 11:15 Microbiology 06/07/20 22:20 Blood - Peripheral Venous Blood Culture - Final Escherichia Coli 06/07/20 22:05 Blood - Peripheral Venous Blood Culture - Final Lactose Fermenting Neg Bacilli 06/07/20 22:20 Urine - Urine Méndez Urine Culture - Final Escherichia Coli Proteus Mirabilis 06/08/20 09:30 Nares - Mrsa Screen - Left MRSA Screen - Final S Aureus a/p ecoli bacteremia/uti - switch to cefazolin, repeat cultues pending renal function now normal quadraplegia with chronic resp failure leukocytosis improving repeat blood cultures sent ?passed stone Problem List - Problems (1) Sepsis Code(s): A41.9 - SEPSIS, UNSPECIFIED ORGANISM Qualifiers: Sepsis type: sepsis due to unspecified organism Sepsis acute organ dysfunction status: unspecified Qualified Code(s): A41.9 - Sepsis, unspecified organism (2) ROMA (acute kidney injury) Code(s): N17.9 - ACUTE KIDNEY FAILURE, UNSPECIFIED (3) UTI (urinary tract infection) Code(s): N39.0 - URINARY TRACT INFECTION, SITE NOT SPECIFIED Qualifiers: Urinary tract infection type: site unspecified Hematuria presence: with hematuria Qualified Code(s): N39.0 - Urinary tract infection, site not specified; R31.9 - Hematuria, unspecified (4) Ventilator dependence Code(s): Z99.11 - DEPENDENCE ON RESPIRATOR [VENTILATOR] STATUS (5) Quadriplegia Code(s): G82.50 - QUADRIPLEGIA, UNSPECIFIED
[2020-06-10] MEDS: CEFAZOLIN 2 GM/D5W 2 GM/50 ML ML IVPB SCH (16:28)
[2020-06-10] MEDS: CHLORHEXIDINE GLUCONATE 4% CLEANSER FOR DECOLONIZATION TP SCH (22:32)
[2020-06-10] MEDS ORDERED: ACETAMINOPHEN 1000 MG/100 ML VIAL (NON FORMULARY) IVPB ONE (23:42)
[2020-06-11] MEDS: SODIUM CHLORIDE 1,000 ML IV SCH (01:09)
[2020-06-11] MEDS: CEFAZOLIN 2 GM/D5W 2 GM/50 ML ML IVPB SCH ×3 (01:10→17:49)
[2020-06-11] MEDS: ALBUTEROL SO4 0.083% IH SOL 2.5 MG/3 ML VIAL.NEB. NEB PRN ×4 (04:15→16:09)
[2020-06-11] MEDS ORDERED: PT OWN MED DRAWER 7, Y5N ONE ×4 (05:19→21:41)
[2020-06-11] MEDS: GABAPENTIN 300 MG CAPSULE PO SCH ×3 (05:20→21:44)
[2020-06-11] MEDS: BACLOFEN 10 MG TABLET (FP) PO SCH ×3 (05:21→22:48)
[2020-06-11 06:50] LABS: BASO % 0.2 % (0-2.0); EOS % 0.1 % (0-4.5); HEMATOCRIT 32.6 % (35.4-49); HEMOGLOBIN 10.6 GM/dL (11.7-16.9); LYMPH % 12.4 % (8-40); MCH 28.1 pg (25.7-33.7); MCHC 32.5 g/dl (32.0-35.9); MEAN CELL VOLUME 86.4 fl (80-96); MEAN PLT VOLUME 9.8 fl (7.5-11.1); MONO % 10.6 % (3.8-10.2); NEUT % 76.7 % (42.8-82.8); PLATELET COUNT 268 K/MM3 (134-434); RBC 3.78 M/mm3 (4.00-5.60); RDW 16.9 % (11.9-15.9); WHITE BLOOD COUNT 13.6 K/mm3 (4.0-10.0)
[2020-06-11 07:22] LABS: POTASSIUM 3.3 mmol/L (3.5-5.1)
[2020-06-11 07:28] LABS: ALBUMIN 2.5 g/dl (3.4-5.0); BLOOD UREA NITROGEN 16.8 mg/dL (7-18); CALCIUM 8.7 mg/dL (8.5-10.1)
[2020-06-11] MEDS ORDERED: KCL 10 MEQ IVPB 10 MEQ/100 ML INFUS.BAG IVPB SCH (07:30)
[2020-06-11 07:31] LABS: CREATININE 0.6 mg/dL (0.55-1.3)
[2020-06-11 07:32] LABS: PHOSPHOROUS 2.1 mg/dL (2.5-4.9)
[2020-06-11] MEDS: ACETYLCYSTEINE 20% 200MG/ML 4 ML VIAL *FOR ORAL / INH USE ONLY NEB SCH ×3 (08:42→16:08)
[2020-06-11 08:43] LABS: ANISOCYTOSIS 0; MACROCYTOSIS 0; PLATELET ESTIMATE NORMAL
[2020-06-11] MEDS: APIXABAN 5 MG TABLET PO SCH ×2 (10:42→21:44)
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
[2020-06-11] MEDS ORDERED: POTASSIUM PHOSPHATE 10 MM in DEXTROSE 5%-WATER - 250 ML IVPB ONE (11:00)
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
[2020-06-11] MEDS: MUPIROCIN 2% TOPICAL OINTMENT FOR DECOLONIZATION NS SCH ×2 (11:12→21:44)
[2020-06-11] MEDS ORDERED: DEXTROSE 5%-WATER - 1,000 ML IV SCH ×2 (11:15→23:48)
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
--- NOTE | 2020-06-11 11:50 | PN ---
Progress Note, DYE ROOM HELPER - Note Progress Note: Selected Entries 06/11/20 06/11/20 06/11/20 00:00 00:14 01:00 Temperature 99.5 F 99.4 F Pulse Rate 101 H 95 H 95 H Blood Pressure 135/93 145/96 O2 Sat by Pulse 96 97 100 Oximetry (%) Oxygen Delivery Mechanical Method Ventilator 06/11/20 06/11/20 06/11/20 03:00 04:00 04:25 Temperature 99.2 F 99.2 F Pulse Rate 92 H 108 H Blood Pressure 120/77 128/80 O2 Sat by Pulse 99 96 97 Oximetry (%) Oxygen Delivery Method 06/11/20 06/11/20 06/11/20 05:00 06:00 08:00 Temperature 99.3 F 99.4 F Pulse Rate 97 H 99 H 85 Blood Pressure 123/78 133/93 129/90 O2 Sat by Pulse 98 99 99 Oximetry (%) Oxygen Delivery Method 06/11/20 06/11/20 06/11/20 08:28 08:31 08:41 Temperature Pulse Rate 101 H Blood Pressure O2 Sat by Pulse 99 99 97 Oximetry (%) Oxygen Delivery Mechanical Mechanical Method Ventilator Ventilator 06/11/20 09:00 Temperature Pulse Rate Blood Pressure O2 Sat by Pulse 97 Oximetry (%) Oxygen Delivery Mechanical Method Ventilator Laboratory Tests 06/10/20 06/11/20 11:15 06:10 WBC 18.2 H 13.6 H Speech improving but still not fluent on sentence level. Good vocal quality.Cognition intact. PO diet of regular consistency and thin liquids ordered by . Monitor tolerance. Please let me know if I can be of further assistance.
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
[2020-06-11] MEDS ORDERED: POTASSIUM CHLORIDE TABS 20 MEQ TABLET.ER (FP) PO ONE (17:03)
[2020-06-11 17:04] LABS: BLOOD UREA NITROGEN 13.7 mg/dL (7-18); CALCIUM 8.7 mg/dL (8.5-10.1)
[2020-06-11 17:08] LABS: CREATININE 0.5 mg/dL (0.55-1.3)
[2020-06-11] MEDS: KCL 10 MEQ IVPB 10 MEQ/100 ML INFUS.BAG IVPB SCH ×3 (17:46→22:48)
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
[2020-06-11] MEDS ORDERED: ACETAMINOPHEN 325 MG TABLET (FP) ONE (21:40)
[2020-06-11] MEDS: CHLORHEXIDINE GLUCONATE 4% CLEANSER FOR DECOLONIZATION TP SCH (21:44)
[2020-06-12] MEDS: CEFAZOLIN 2 GM/D5W 2 GM/50 ML ML IVPB SCH ×3 (02:26→17:15)
[2020-06-12] MEDS: ALBUTEROL SO4 0.083% IH SOL 2.5 MG/3 ML VIAL.NEB. NEB PRN ×5 (06:56→20:15)
[2020-06-12] MEDS: BACLOFEN 10 MG TABLET (FP) PO SCH ×3 (07:08→22:32)
[2020-06-12] MEDS: GABAPENTIN 300 MG CAPSULE PO SCH ×3 (07:08→22:32)
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
[2020-06-12] MEDS: ACETYLCYSTEINE 20% 200MG/ML 4 ML VIAL *FOR ORAL / INH USE ONLY NEB SCH ×4 (08:46→20:15)
[2020-06-12 09:06] LABS: BASO % 0.3 % (0-2.0); EOS % 0.6 % (0-4.5); HEMATOCRIT 35.7 % (35.4-49); HEMOGLOBIN 11.8 GM/dL (11.7-16.9); LYMPH % 13.9 % (8-40); MCHC 32.9 g/dl (32.0-35.9); MEAN CELL VOLUME 85.1 fl (80-96); MEAN PLT VOLUME 9.2 fl (7.5-11.1); MONO % 13.1 % (3.8-10.2); NEUT % 72.1 % (42.8-82.8); PLATELET COUNT 291 K/MM3 (134-434); RDW 16.9 % (11.9-15.9); WHITE BLOOD COUNT 12.3 K/mm3 (4.0-10.0)
[2020-06-12 09:27] LABS: MAGNESIUM 1.6 mg/dL (1.8-2.4)
[2020-06-12 09:31] LABS: PHOSPHOROUS 2.3 mg/dL (2.5-4.9)
[2020-06-12 10:16] LABS: ANISOCYTOSIS 1+; MACROCYTOSIS 1+; PLATELET ESTIMATE NORMAL
--- NOTE | 2020-06-12 10:57 | PN ---
Progress Note, CIRCUIT BOARD INSPECTOR - Note Progress Note: Selected Entries 06/11/20 06/11/20 06/11/20 00:00 00:14 01:00 Breakfast Lunch Supper Temperature 99.5 F 99.4 F Pulse Rate Blood Pressure O2 Sat by Pulse 96 97 100 Oximetry (%) Fraction of Inspired Oxygen (FIO2) 06/11/20 06/11/20 06/11/20 03:00 04:00 04:25 Breakfast Lunch Supper Temperature 99.2 F 99.2 F Pulse Rate Blood Pressure O2 Sat by Pulse 99 96 97 Oximetry (%) Fraction of Inspired Oxygen (FIO2) 06/11/20 06/11/20 06/11/20 05:00 06:00 08:00 Breakfast Lunch Supper Temperature 99.3 F 99.4 F Pulse Rate Blood Pressure O2 Sat by Pulse 98 99 99 Oximetry (%) Fraction of Inspired Oxygen (FIO2) 06/11/20 06/11/20 06/11/20 08:28 08:31 08:41 Breakfast Lunch Supper Temperature Pulse Rate Blood Pressure O2 Sat by Pulse 99 99 97 Oximetry (%) Fraction of Inspired Oxygen (FIO2) 06/11/20 06/11/20 06/11/20 09:00 10:00 12:00 Breakfast NPO Lunch NPO Supper Temperature 99.2 F Pulse Rate Blood Pressure O2 Sat by Pulse 97 97 97 Oximetry (%) Fraction of Inspired Oxygen (FIO2) 06/11/20 06/11/20 06/11/20 14:00 15:00 16:00 Breakfast NPO Lunch 25% Supper 75% Temperature 99.6 F Pulse Rate Blood Pressure O2 Sat by Pulse 99 99 Oximetry (%) Fraction of Inspired Oxygen (FIO2) 06/11/20 06/11/20 06/11/20 16:08 18:00 20:00 Breakfast Lunch Supper Temperature 100.3 F H Pulse Rate Blood Pressure O2 Sat by Pulse 99 99 100 Oximetry (%) Fraction of Inspired Oxygen (FIO2) 06/11/20 06/11/20 06/12/20 20:03 21:00 00:09 Breakfast Lunch Supper Temperature Pulse Rate Blood Pressure O2 Sat by Pulse 99 100 97 Oximetry (%) Fraction of 50 Inspired Oxygen (FIO2) 06/12/20 06/12/20 06/12/20 00:48 04:02 08:47 Breakfast Lunch Supper Temperature 99.5 F Pulse Rate 68 Blood Pressure 138/89 O2 Sat by Pulse 96 98 98 Oximetry (%) Fraction of 50 50 Inspired Oxygen (FIO2) Laboratory Tests 06/10/20 06/11/20 06/12/20 11:15 06:10 07:52 WBC 18.2 H 13.6 H 12.3 H Reg diet/thin liquid ordered Pt reports tolerating diet and no difficulty observed by nursing Speech is more fluent. Monitor po tolerancwe
[2020-06-12] MEDS ORDERED: SODIUM PHOSPHATE/NA BIPHOS 133 ML ENEMA PR ONE (11:13)
[2020-06-12] MEDS: APIXABAN 5 MG TABLET PO SCH ×2 (11:40→22:32)
[2020-06-12] MEDS: POTASSIUM CHLORIDE ORAL LIQUID 20 MEQ/15 ML PO ONE ×2 (11:40→15:01)
[2020-06-12] MEDS ORDERED: ACETAMINOPHEN 1000 MG/100 ML VIAL (NON FORMULARY) IVPB PRN (13:42)
[2020-06-12] MEDS ORDERED: ACETAMINOPHEN 325 MG TABLET (FP) ONE (13:48)
[2020-06-12] MEDS: ACETAMINOPHEN 500 MG TABLET (FP) PO PRN ×2 (13:50→22:40)
[2020-06-12 15:07] LABS: POTASSIUM 3.3 mmol/L (3.5-5.1)
[2020-06-12 15:09] LABS: CALCIUM 8.9 mg/dL (8.5-10.1)
[2020-06-12 15:10] LABS: ALBUMIN 2.4 g/dl (3.4-5.0); BLOOD UREA NITROGEN 11.2 mg/dL (7-18)
[2020-06-12 15:13] LABS: CREATININE 0.6 mg/dL (0.55-1.3)
[2020-06-12 15:14] LABS: BILIRUBIN,TOTAL 0.6 mg/dL (0.2-1); TOT PROT 7.1 g/dl (6.4-8.2)
--- NOTE | 2020-06-12 15:44 | PN ---
Progress Note (short form) - Note Progress Note: alert laying on his side just had an enema Vital Signs Period Temp Pulse Resp BP Sys/Wood Pulse Ox Last 24 Hr 99.5 F-100.3 F 68-101 16-24 104-138/48-89 96-100 trach to vent cor-rrr lungs clear, decreased bs at bases CBC, BMP 06/12/20 07:52 06/12/20 13:40 Microbiology 06/10/20 11:25 Blood - Peripheral Venous Blood Culture - Preliminary NO GROWTH OBTAINED AFTER 48 HOURS, INCUBATION TO CONTINUE FOR 3 DAYS. 06/10/20 11:15 Blood - Peripheral Venous Blood Culture - Preliminary NO GROWTH OBTAINED AFTER 48 HOURS, INCUBATION TO CONTINUE FOR 3 DAYS. 06/10/20 14:00 Sputum - Endotrachea Suction/Ventilator Gram Stain - Final 06/10/20 14:00 Sputum - Endotrachea Suction/Ventilator Sputum Culture - Preliminary Non Lactose Fermenting Gnb 06/07/20 22:20 Blood - Peripheral Venous Blood Culture - Final Escherichia Coli 06/07/20 22:05 Blood - Peripheral Venous Blood Culture - Final Lactose Fermenting Neg Bacilli 06/07/20 22:20 Urine - Urine Méndez Urine Culture - Final Escherichia Coli Proteus Mirabilis 06/08/20 09:30 Nares - Mrsa Screen - Left MRSA Screen - Final S Aureus a/p ecoli bacteremia/uti - continue cefazolin, repeat cultues pending renal function now normal quadraplegia with chronic resp failure leukocytosis improving repeat blood cultures negative ?passed stone menatl status changes resolved Problem List - Problems (1) Sepsis Code(s): A41.9 - SEPSIS, UNSPECIFIED ORGANISM Qualifiers: Sepsis type: sepsis due to unspecified organism Sepsis acute organ dysfunction status: unspecified Qualified Code(s): A41.9 - Sepsis, unspecified organism (2) ROMA (acute kidney injury) Code(s): N17.9 - ACUTE KIDNEY FAILURE, UNSPECIFIED (3) UTI (urinary tract infection) Code(s): N39.0 - URINARY TRACT INFECTION, SITE NOT SPECIFIED Qualifiers: Urinary tract infection type: site unspecified Hematuria presence: with hematuria Qualified Code(s): N39.0 - Urinary tract infection, site not specified; R31.9 - Hematuria, unspecified (4) Ventilator dependence Code(s): Z99.11 - DEPENDENCE ON RESPIRATOR [VENTILATOR] STATUS (5) Quadriplegia Code(s): G82.50 - QUADRIPLEGIA, UNSPECIFIED
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
[2020-06-12] MEDS ORDERED: POTASSIUM CHLORIDE TABS 20 MEQ TABLET.ER (FP) PO ONE (17:50)
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
[2020-06-13] MEDS: CEFAZOLIN 2 GM/D5W 2 GM/50 ML ML IVPB SCH ×3 (01:14→18:12)
[2020-06-13] MEDS: ACETYLCYSTEINE 20% 200MG/ML 4 ML VIAL *FOR ORAL / INH USE ONLY NEB SCH (07:30)
[2020-06-13] MEDS: ALBUTEROL SO4 0.083% IH SOL 2.5 MG/3 ML VIAL.NEB. NEB PRN (07:30)
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
[2020-06-13] MEDS: BACLOFEN 10 MG TABLET (FP) PO SCH ×3 (08:10→21:40)
[2020-06-13] MEDS: GABAPENTIN 300 MG CAPSULE PO SCH ×3 (08:10→21:41)
[2020-06-13] MEDS: ACETAMINOPHEN 500 MG TABLET (FP) PO PRN (08:28)
[2020-06-13 09:31] LABS: POTASSIUM 3.4 mmol/L (3.5-5.1)
[2020-06-13 09:32] LABS: CALCIUM 8.4 mg/dL (8.5-10.1)
[2020-06-13 09:34] LABS: MAGNESIUM 1.5 mg/dL (1.8-2.4)
[2020-06-13 09:36] LABS: CREATININE 0.5 mg/dL (0.55-1.3)
[2020-06-13 09:37] LABS: PHOSPHOROUS 2.7 mg/dL (2.5-4.9)
[2020-06-13] MEDS: APIXABAN 5 MG TABLET PO SCH ×2 (09:39→21:40)
[2020-06-13 10:35] LABS: HEMATOCRIT 37.3 % (35.4-49); HEMOGLOBIN 12.7 GM/dL (11.7-16.9); MCH 29.3 pg (25.7-33.7); MCHC 33.9 g/dl (32.0-35.9); MEAN CELL VOLUME 86.3 fl (80-96); MEAN PLT VOLUME 9.7 fl (7.5-11.1); PLATELET COUNT 376 K/MM3 (134-434); RBC 4.32 M/mm3 (4.00-5.60); WHITE BLOOD COUNT 12.7 K/mm3 (4.0-10.0)
[2020-06-13] MEDS ORDERED: POTASSIUM CHLORIDE TABS 20 MEQ TABLET.ER (FP) PO ONE (10:36)
[2020-06-13] MEDS: IPRATROPIUM BR 0.02% 0.5 MG/2.5 ML VIAL.NEB. NEB PRN ×2 (11:38→16:13)
--- NOTE | 2020-06-13 11:41 | PN ---
Progress Note (short form) - Note Progress Note: alert no complaints vent at 40% at home per patient Vital Signs Period Temp Pulse Resp BP Sys/Wood Pulse Ox Last 24 Hr 98.9 F-100.3 F 78-101 17-22 103-142/48-79 95-98 cor-rrr lungs decreased bs at bases abd distended nt ext no edema CBC, BMP 06/13/20 09:45 06/13/20 08:27 Microbiology 06/10/20 11:25 Blood - Peripheral Venous Blood Culture - Preliminary NO GROWTH OBTAINED AFTER 48 HOURS, INCUBATION TO CONTINUE FOR 3 DAYS. 06/10/20 11:15 Blood - Peripheral Venous Blood Culture - Preliminary NO GROWTH OBTAINED AFTER 48 HOURS, INCUBATION TO CONTINUE FOR 3 DAYS. 06/10/20 14:00 Sputum - Endotrachea Suction/Ventilator Gram Stain - Final 06/10/20 14:00 Sputum - Endotrachea Suction/Ventilator Sputum Culture - Preliminary Non Lactose Fermenting Gnb 06/07/20 22:20 Blood - Peripheral Venous Blood Culture - Final Escherichia Coli 06/07/20 22:05 Blood - Peripheral Venous Blood Culture - Final Lactose Fermenting Neg Bacilli 06/07/20 22:20 Urine - Urine Méndez Urine Culture - Final Escherichia Coli Proteus Mirabilis 06/08/20 09:30 Nares - Mrsa Screen - Left MRSA Screen - Final S Aureus a/p ecoli bacteremia/uti - continue cefazolin-day #6 antibiotics renal function now normal quadraplegia with chronic resp failure leukocytosis improving repeat blood cultures negative ?passed stone Problem List - Problems (1) Sepsis Code(s): A41.9 - SEPSIS, UNSPECIFIED ORGANISM Qualifiers: Sepsis type: sepsis due to unspecified organism Sepsis acute organ dysfunction status: unspecified Qualified Code(s): A41.9 - Sepsis, unspecified organism (2) ROMA (acute kidney injury) Code(s): N17.9 - ACUTE KIDNEY FAILURE, UNSPECIFIED (3) UTI (urinary tract infection) Code(s): N39.0 - URINARY TRACT INFECTION, SITE NOT SPECIFIED Qualifiers: Urinary tract infection type: site unspecified Hematuria presence: with hematuria Qualified Code(s): N39.0 - Urinary tract infection, site not specified; R31.9 - Hematuria, unspecified (4) Ventilator dependence Code(s): Z99.11 - DEPENDENCE ON RESPIRATOR [VENTILATOR] STATUS (5) Quadriplegia Code(s): G82.50 - QUADRIPLEGIA, UNSPECIFIED
--- NOTE | 2020-06-13 15:03 | EKG ---
Test Reason : Blood Pressure : / mmHG Vent. Rate : 107 BPM Atrial Rate : 107 BPM P-R Int : 140 ms QRS Dur : 094 ms QT Int : 360 ms P-R-T Axes : 032 -18 027 degrees QTc Int : 480 ms SINUS TACHYCARDIA VOLTAGE CRITERIA FOR LEFT VENTRICULAR HYPERTROPHY NONSPECIFIC T WAVE ABNORMALITY PROLONGED QT ABNORMAL ECG WHEN COMPARED WITH ECG OF 07-JUN-2020 22:20, INCOMPLETE RIGHT BUNDLE BRANCH BLOCK IS NO LONGER PRESENT Confirmed by REGGIE MATHIS MD ([id number]) on 06/13/2020 3:03:46 PM Referred By: Omayra SINHA Confirmed By:REGGIE MATHIS MD
[2020-06-13] MEDS ORDERED: MAGNESIUM SULF 50% (8.12 MEQ/2 ML-1 GM VIAL) IVPB ONE (15:14)
[2020-06-14] MEDS: CEFAZOLIN 2 GM/D5W 2 GM/50 ML ML IVPB SCH ×3 (01:11→17:05)
[2020-06-14] MEDS: IPRATROPIUM BR 0.02% 0.5 MG/2.5 ML VIAL.NEB. NEB PRN ×4 (06:28→21:07)
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
[2020-06-14] MEDS: BACLOFEN 10 MG TABLET (FP) PO SCH ×3 (08:24→21:59)
[2020-06-14] MEDS: GABAPENTIN 300 MG CAPSULE PO SCH ×3 (08:24→21:14)
[2020-06-14] MEDS ORDERED: DOCUSATE NA 100 MG/10 ML UNIT-DOSE CUPS PO PRN ×2 (09:25→16:06)
[2020-06-14] MEDS ORDERED: SODIUM PHOSPHATE/NA BIPHOS 133 ML ENEMA PR PRN ×2 (09:25→16:06)
[2020-06-14 09:45] LABS: BASO % 0.7 % (0-2.0); EOS % 1.9 % (0-4.5); HEMATOCRIT 37.4 % (35.4-49); HEMOGLOBIN 12.1 GM/dL (11.7-16.9); LYMPH % 18.4 % (8-40); MCH 27.6 pg (25.7-33.7); MCHC 32.4 g/dl (32.0-35.9); MEAN CELL VOLUME 85.2 fl (80-96); MEAN PLT VOLUME 9.3 fl (7.5-11.1); MONO % 7.7 % (3.8-10.2); NEUT % 71.3 % (42.8-82.8); PLATELET COUNT 311 K/MM3 (134-434); RBC 4.39 M/mm3 (4.00-5.60); RDW 16.5 % (11.9-15.9)
[2020-06-14] MEDS: APIXABAN 5 MG TABLET PO SCH ×2 (09:51→21:14)
[2020-06-14] MEDS: ACETAMINOPHEN 500 MG TABLET (FP) PO PRN (09:52)
[2020-06-14 09:58] LABS: CHLORIDE 107 mmol/L (98-107); POTASSIUM 3.2 mmol/L (3.5-5.1); SODIUM 141 mmol/L (136-145)
[2020-06-14 10:00] LABS: ALBUMIN 2.3 g/dl (3.4-5.0); ANION GAP 7 MMOL/L (8-16); BLOOD UREA NITROGEN 8.2 mg/dL (7-18); CALCIUM 8.6 mg/dL (8.5-10.1); CO2 26 mmol/L (21-32); GLUCOSE,RANDOM 98 mg/dL (74-106)
[2020-06-14] MEDS ORDERED: SENNOSIDES 8.6MG TABLET (FP) PO SCH (10:00)
[2020-06-14 10:02] LABS: SGOT/AST 12 U/L (15-37)
[2020-06-14 10:04] LABS: BILIRUBIN,TOTAL 0.9 mg/dL (0.2-1); TOT PROT 7.1 g/dl (6.4-8.2)
[2020-06-14 10:08] LABS: ALK PHOS 90 U/L (45-117); CREATININE 0.5 mg/dL (0.55-1.3); SGPT/ALT < 6 U/L (13-61)
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
--- NOTE | 2020-06-14 11:47 | PN ---
Progress Note (short form) - Note Progress Note: alert no complaints vent at 40% at home per patient feels at baseline, noted to have spisodes of tachycardia for transfer to telemetry at home he is up in wheelchair, able to use a computer bed has a vibrating mode as well Vital Signs Period Temp Pulse Resp BP Sys/Wood Pulse Ox Last 24 Hr 98.7 F-100.8 F 87-114 16-28 101-162/47-71 92-98 cor-rrr lungs bilateral rhonchi abd soft,nt +SPT ext no edema CBC, BMP 06/14/20 09:10 06/14/20 09:10 Microbiology 06/10/20 14:00 Sputum - Endotrachea Suction/Ventilator Gram Stain - Final 06/10/20 14:00 Sputum - Endotrachea Suction/Ventilator Sputum Culture - Final Stenotrophomon.(X.)Maltophilia 06/13/20 01:00 Urine - Urine Suprapubic Urine Culture - Final NO GROWTH OBTAINED 06/12/20 19:30 Blood - Peripheral Venous Blood Culture - Preliminary NO GROWTH OBTAINED AFTER 24 HOURS, INCUBATION TO CONTINUE FOR 4 DAYS. 06/12/20 19:30 Blood - Peripheral Venous Blood Culture - Preliminary NO GROWTH OBTAINED AFTER 24 HOURS, INCUBATION TO CONTINUE FOR 4 DAYS. 06/10/20 11:25 Blood - Peripheral Venous Blood Culture - Preliminary NO GROWTH OBTAINED AFTER 72 HOURS, INCUBATION TO CONTINUE FOR 2 DAYS. 06/10/20 11:15 Blood - Peripheral Venous Blood Culture - Preliminary NO GROWTH OBTAINED AFTER 72 HOURS, INCUBATION TO CONTINUE FOR 2 DAYS. 06/07/20 22:20 Blood - Peripheral Venous Blood Culture - Final Escherichia Coli 06/07/20 22:05 Blood - Peripheral Venous Blood Culture - Final Lactose Fermenting Neg Bacilli 06/07/20 22:20 Urine - Urine Méndez Urine Culture - Final Escherichia Coli Proteus Mirabilis 06/08/20 09:30 Nares - Mrsa Screen - Left MRSA Screen - Final S Aureus cxray with LLL atelectasis a/p ecoli bacteremia/uti - continue cefazolin-day #7 antibiotics renal function now normal quadraplegia with chronic resp failure leukocytosis noted- suspect atelectasis- need chest PT repeat blood cultures negative tachycardia- for transfer to telemetry Problem List - Problems (1) Sepsis Code(s): A41.9 - SEPSIS, UNSPECIFIED ORGANISM Qualifiers: Sepsis type: sepsis due to unspecified organism Sepsis acute organ dysfunction status: unspecified Qualified Code(s): A41.9 - Sepsis, unspecified organism (2) ROMA (acute kidney injury) Code(s): N17.9 - ACUTE KIDNEY FAILURE, UNSPECIFIED (3) UTI (urinary tract infection) Code(s): N39.0 - URINARY TRACT INFECTION, SITE NOT SPECIFIED Qualifiers: Urinary tract infection type: site unspecified Hematuria presence: with hematuria Qualified Code(s): N39.0 - Urinary tract infection, site not specified; R31.9 - Hematuria, unspecified (4) Ventilator dependence Code(s): Z99.11 - DEPENDENCE ON RESPIRATOR [VENTILATOR] STATUS (5) Quadriplegia Code(s): G82.50 - QUADRIPLEGIA, UNSPECIFIED
--- NOTE | 2020-06-14 11:54 | EKG ---
Test Reason : Blood Pressure : / mmHG Vent. Rate : 107 BPM Atrial Rate : 107 BPM P-R Int : 128 ms QRS Dur : 096 ms QT Int : 370 ms P-R-T Axes : 046 000 010 degrees QTc Int : 493 ms SINUS TACHYCARDIA MODERATE VOLTAGE CRITERIA FOR LVH, MAY BE NORMAL VARIANT NONSPECIFIC T WAVE ABNORMALITY ABNORMAL ECG WHEN COMPARED WITH ECG OF 13-JUN-2020 10:50, ST NOW DEPRESSED IN INFERIOR LEADS ST NO LONGER DEPRESSED IN ANTERIOR LEADS Confirmed by ALMA LONDONO, ERIK ([id number]) on 06/14/2020 11:54:34 AM Referred By: Raul EVERETT Confirmed By:ERIK MARQUEZ MD
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
[2020-06-14 17:29] LABS: POTASSIUM 3.3 mmol/L (3.5-5.1)
[2020-06-14 17:31] LABS: BLOOD UREA NITROGEN 8.9 mg/dL (7-18); CALCIUM 8.4 mg/dL (8.5-10.1); MAGNESIUM 1.8 mg/dL (1.8-2.4)
[2020-06-14 17:35] LABS: CREATININE 0.5 mg/dL (0.55-1.3)
[2020-06-14] MEDS: KCL 10 MEQ IVPB 10 MEQ/100 ML INFUS.BAG IVPB SCH ×2 (18:09→19:04)
[2020-06-14] MEDS ORDERED: PT OWN MED DRAWER 7, Y5N ONE (21:13)
[2020-06-14] MEDS: CHLORHEXIDINE GLUCONATE 4% CLEANSER FOR DECOLONIZATION TP SCH (21:14)
[2020-06-14] MEDS: SENNOSIDES 8.6MG TABLET (FP) PO SCH (21:14)
[2020-06-14] MEDS: MUPIROCIN 2% TOPICAL OINTMENT FOR DECOLONIZATION NS SCH (21:14)
[2020-06-15] MEDS: CEFAZOLIN 2 GM/D5W 2 GM/50 ML ML IVPB SCH ×3 (01:17→17:21)
[2020-06-15] MEDS: ACETAMINOPHEN 500 MG TABLET (FP) PO PRN (05:01)
[2020-06-15] MEDS ORDERED: PT OWN MED DRAWER 7, Y5N ONE ×2 (05:23→15:06)
[2020-06-15] MEDS: IPRATROPIUM BR 0.02% 0.5 MG/2.5 ML VIAL.NEB. NEB PRN ×3 (05:24→21:38)
[2020-06-15] MEDS: BACLOFEN 10 MG TABLET (FP) PO SCH ×3 (06:13→21:14)
[2020-06-15] MEDS: GABAPENTIN 300 MG CAPSULE PO SCH ×3 (06:14→21:14)
[2020-06-15] MEDS: APIXABAN 5 MG TABLET PO SCH ×2 (09:23→21:09)
[2020-06-15] MEDS: SENNOSIDES 8.6MG TABLET (FP) PO SCH ×2 (09:24→21:08)
[2020-06-15] MEDS: MUPIROCIN 2% TOPICAL OINTMENT FOR DECOLONIZATION NS SCH ×2 (09:24→21:08)
[2020-06-15] MEDS ORDERED: SODIUM CHLORIDE 0.9% 500 ML INFUS.BAG IV ONE (10:14)
[2020-06-15] MEDS ORDERED: LACTATED RINGERS SOLUTION 1000 ML INFUS.BAG IV ONE (10:43)
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
--- NOTE | 2020-06-15 12:28 | PN ---
Progress Note (short form) - Note Progress Note: alert no complaints vent at 40% at home per patient trach to vent Vital Signs Period Temp Pulse Resp BP Sys/Wood Pulse Ox Last 24 Hr 98.4 F-99.6 F 60-200 14-27 87-141/39-83 94-99 cor-rrr lungs decreased bs at bases abd soft, nt +SPT ext no edema CBC, BMP 06/14/20 09:10 06/14/20 16:05 Microbiology 06/10/20 11:15 Blood - Peripheral Venous Blood Culture - Final NO GROWTH AFTER 5 DAYS INCUBATION 06/10/20 11:25 Blood - Peripheral Venous Blood Culture - Final NO GROWTH AFTER 5 DAYS INCUBATION 06/12/20 19:30 Blood - Peripheral Venous Blood Culture - Preliminary NO GROWTH OBTAINED AFTER 48 HOURS, INCUBATION TO CONTINUE FOR 3 DAYS. 06/12/20 19:30 Blood - Peripheral Venous Blood Culture - Preliminary NO GROWTH OBTAINED AFTER 48 HOURS, INCUBATION TO CONTINUE FOR 3 DAYS. 06/10/20 14:00 Sputum - Endotrachea Suction/Ventilator Gram Stain - Final 06/10/20 14:00 Sputum - Endotrachea Suction/Ventilator Sputum Culture - Final Stenotrophomon.(X.)Maltophilia 06/13/20 01:00 Urine - Urine Suprapubic Urine Culture - Final NO GROWTH OBTAINED 06/07/20 22:20 Blood - Peripheral Venous Blood Culture - Final Escherichia Coli 06/07/20 22:05 Blood - Peripheral Venous Blood Culture - Final Lactose Fermenting Neg Bacilli 06/07/20 22:20 Urine - Urine Méndez Urine Culture - Final Escherichia Coli Proteus Mirabilis 06/08/20 09:30 Nares - Mrsa Screen - Left MRSA Screen - Final Mr S Aureus a/p ecoli bacteremia/uti - continue cefazolin-day #8 antibiotics- can change to po bactrim to complete total 10 days when ready for discharge renal function now normal quadraplegia with chronic resp failure leukocytosis noted- suspect atelectasis- need chest PT repeat blood cultures negative tachycardia- for transfer to telemetry Problem List - Problems (1) Sepsis Code(s): A41.9 - SEPSIS, UNSPECIFIED ORGANISM Qualifiers: Sepsis type: sepsis due to unspecified organism Sepsis acute organ dysfunction status: unspecified Qualified Code(s): A41.9 - Sepsis, unspecified organism (2) ROMA (acute kidney injury) Code(s): N17.9 - ACUTE KIDNEY FAILURE, UNSPECIFIED (3) UTI (urinary tract infection) Code(s): N39.0 - URINARY TRACT INFECTION, SITE NOT SPECIFIED Qualifiers: Urinary tract infection type: site unspecified Hematuria presence: with hematuria Qualified Code(s): N39.0 - Urinary tract infection, site not specified; R31.9 - Hematuria, unspecified (4) Ventilator dependence Code(s): Z99.11 - DEPENDENCE ON RESPIRATOR [VENTILATOR] STATUS (5) Quadriplegia Code(s): G82.50 - QUADRIPLEGIA, UNSPECIFIED
[2020-06-15 12:34] VITALS: BMI 34.5
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
[2020-06-15] MEDS ORDERED: LACTATED RINGERS SOLUTION 1,000 ML/1,000 ML INFUS.BAG IV STA (13:18)
--- NOTE | 2020-06-15 14:11 | ECHO ---
Name: MARIZA ZAMORANO Exam:Adult Echocardiogram Study Date: 06/15/2020 10:10 AM Age: 29 yrs Reason For Study: svt Height: 73 in Weight: 266 lb BSA: 2.4 m2 MMode/2D Measurements & Calculations IVSd: 1.1 cm Ao root diam: 2.9 cm LVIDd: 4.5 cm LA dimension: 2.7 cm LVIDs: 2.3 cm LVPWd: 0.98 cm EDV(Teich): 91.8 ml LVOT diam: 2.3 cm ESV(Teich): 19.0 ml LAV (MOD-bp): 43.3 ml Doppler Measurements & Calculations MV E max doug: 88.6 cm/sec Ao V2 max: 125.3 cm/sec MV A max doug: 50.7 cm/sec Ao max P.3 mmHg MV E/A: 1.7 MV dec time: 0.09 sec DENISHA(V,D): 2.4 cm2 LV V1 max P.0 mmHg PA V2 max: 126.7 cm/sec LV V1 max: 70.6 cm/sec PA max P.4 mmHg Med Peak E' Doug: 7.2 cm/sec Med E/e': 12.3 Lat Peak E' Doug: 9.9 cm/sec Lat E/e': 8.9 Procedure A complete two-dimensional transthoracic echocardiogram was performed (2D, M-mode, Doppler and color flow Doppler). Technically limited study. Left Ventricle The left ventricle is normal in size. Left ventricular systolic function is normal. Ejection Fraction = 65- 70%. No regional wall motion abnormalities noted. Right Ventricle The right ventricle is not well visualized. Atria The left atrial size is normal. Right atrium not well visualized. Mitral Valve The mitral valve is normal in structure and function. There is mild mitral regurgitation. Tricuspid Valve The tricuspid valve is normal in structure and function. No tricuspid regurgitation. Aortic Valve The aortic valve is normal in structure and function. No aortic regurgitation is present. Pulmonic Valve The pulmonic valve is not well visualized. Great Vessels The aortic root is normal size. Pericardium/Pleura There is no pericardial effusion. Interpretation Summary Technically limited study The left ventricle is normal in size. Left ventricular systolic function is normal. No regional wall motion abnormalities noted. Ejection Fraction = 65-70%. There is mild mitral regurgitation. There is no pericardial effusion. Shukri Crow MD 06/15/2020 02:11 PM
[2020-06-15] MEDS ORDERED: SODIUM CHLORIDE 1,000 ML IV SCH (19:15)
[2020-06-15] MEDS: DOCUSATE SODIUM 100 MG CAPSULE (FP) PO SCH (21:09)
[2020-06-15] MEDS: CHLORHEXIDINE GLUCONATE 4% CLEANSER FOR DECOLONIZATION TP SCH (21:13)
[2020-06-16] MEDS: CEFAZOLIN 2 GM/D5W 2 GM/50 ML ML IVPB SCH ×3 (01:44→17:06)
[2020-06-16] MEDS: GABAPENTIN 300 MG CAPSULE PO SCH ×3 (05:42→22:39)
[2020-06-16] MEDS: BACLOFEN 10 MG TABLET (FP) PO SCH ×2 (05:42→13:36)
[2020-06-16] MEDS: APIXABAN 5 MG TABLET PO SCH ×2 (09:05→22:38)
[2020-06-16] MEDS: MUPIROCIN 2% TOPICAL OINTMENT FOR DECOLONIZATION NS SCH ×2 (09:06→22:39)
[2020-06-16 10:41] LABS: HEMATOCRIT 32.6 % (35.4-49); HEMOGLOBIN 10.7 GM/dL (11.7-16.9); MCHC 32.8 g/dl (32.0-35.9); MEAN CELL VOLUME 85.2 fl (80-96); MEAN PLT VOLUME 9.6 fl (7.5-11.1); PLATELET COUNT 258 K/MM3 (134-434); RBC 3.83 M/mm3 (4.00-5.60); RDW 16.4 % (11.9-15.9)
[2020-06-16 11:06] LABS: BLOOD UREA NITROGEN 6.7 mg/dL (7-18); CALCIUM 8.2 mg/dL (8.5-10.1)
[2020-06-16 11:07] LABS: MAGNESIUM 1.5 mg/dL (1.8-2.4)
[2020-06-16 11:09] LABS: CREATININE 0.4 mg/dL (0.55-1.3)
[2020-06-16 11:10] LABS: PHOSPHOROUS 3.4 mg/dL (2.5-4.9)
[2020-06-16 11:18] LABS: POTASSIUM 2.8 mmol/L (3.5-5.1)
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
[2020-06-16] MEDS ORDERED: PT OWN MED DRAWER 7, Y5N ONE (13:34)
[2020-06-16] MEDS: KCL 10 MEQ IVPB 10 MEQ/100 ML INFUS.BAG IVPB SCH ×3 (13:36→16:00)
[2020-06-16] MEDS: IPRATROPIUM BR 0.02% 0.5 MG/2.5 ML VIAL.NEB. NEB PRN (13:59)
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
[2020-06-16] MEDS ORDERED: MAGNESIUM 1GM/D5W 100ML - 100 ML IVPB IVPB ONE (15:34)
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
[2020-06-16] MEDS ORDERED: POTASSIUM CHLORIDE ORAL LIQUID 20 MEQ/15 ML PO ONE (16:15)
[2020-06-16 19:45] LABS: POTASSIUM 3.7 mmol/L (3.5-5.1)
[2020-06-16 19:46] LABS: CALCIUM 8.5 mg/dL (8.5-10.1)
[2020-06-16 19:47] LABS: BLOOD UREA NITROGEN 5.6 mg/dL (7-18)
[2020-06-16 19:50] LABS: CREATININE 0.6 mg/dL (0.55-1.3)
[2020-06-16 21:41] LABS: MAGNESIUM 1.7 mg/dL (1.8-2.4)
[2020-06-16 21:44] LABS: PHOSPHOROUS 3.4 mg/dL (2.5-4.9)
[2020-06-16] MEDS ORDERED: MAGNESIUM SULF 50% (8.12 MEQ/2 ML-1 GM VIAL) IVPB ONE (21:46)
[2020-06-16] MEDS: SENNOSIDES 8.6MG TABLET (FP) PO SCH (22:38)
[2020-06-16] MEDS: CHLORHEXIDINE GLUCONATE 4% CLEANSER FOR DECOLONIZATION TP SCH (22:39)
[2020-06-16] MEDS: DOCUSATE SODIUM 100 MG CAPSULE (FP) PO SCH (22:39)
[2020-06-17] MEDS: BACLOFEN 10 MG TABLET (FP) PO SCH ×3 (00:55→13:55)
[2020-06-17] MEDS: ACETAMINOPHEN 500 MG TABLET (FP) PO PRN (00:55)
[2020-06-17] MEDS: CEFAZOLIN 2 GM/D5W 2 GM/50 ML ML IVPB SCH ×2 (01:01→09:36)
[2020-06-17] MEDS: GABAPENTIN 300 MG CAPSULE PO SCH ×2 (06:44→13:55)
[2020-06-17] MEDS ORDERED: MAGNESIUM SULF 50% (8.12 MEQ/2 ML-1 GM VIAL) IVPB ONE (07:25)
[2020-06-17 08:50] VITALS: TEMP 98.3
[2020-06-17] MEDS: APIXABAN 5 MG TABLET PO SCH (09:36)
[2020-06-17] MEDS: MUPIROCIN 2% TOPICAL OINTMENT FOR DECOLONIZATION NS SCH (09:36)
[2020-06-17] MEDS: IPRATROPIUM BR 0.02% 0.5 MG/2.5 ML VIAL.NEB. NEB PRN (10:11)
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
[2020-06-17 12:26] VITALS: BP 143/98; PULSE 58
[2020-06-17] MEDS ORDERED: POTASSIUM CHLORIDE TABS 20 MEQ TABLET.ER (FP) PO ONE (12:30)
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
[2020-06-17] MEDS ORDERED: PT OWN MED DRAWER 7, Y5N ONE (13:51)
== END 2020-06-17 15:30 | disposition home or self-care (01) | DRG 720 ==
LOC: JER 21:54 → JERBED 23:00 → JICU 06-08 01:10 → J5S 06-11 22:37 → JICU 06-14 14:52
PROVIDERS: ADMIT Internal Medicine Pulmonary Disease; ATTEND Internal Medicine Pulmonary Disease
PROC: 5A1955Z Respiratory Ventilation, Greater than 96 Consecutive Hours (ICD-10-PCS; principal; 2020-06-07)
DX: A41.9 Sepsis, unspecified organism (principal); Z93.0 Tracheostomy status; D72.829 Elevated white blood cell count, unspecified; N39.0 Urinary tract infection, site not specified; E66.9 Obesity, unspecified; Z68.34 Body mass index [BMI] 34.0-34.9, adult; N20.0 Calculus of kidney; N31.9 Neuromuscular dysfunction of bladder, unspecified; N13.6 Pyonephrosis; G82.50 Quadriplegia, unspecified; I95.9 Hypotension, unspecified; N17.9 Acute kidney failure, unspecified; Z99.11 Dependence on respirator [ventilator] status; J96.11 Chronic respiratory failure with hypoxia; R65.21 Severe sepsis with septic shock; E87.2 Acidosis; I47.1 Supraventricular tachycardia; D64.9 Anemia, unspecified; R00.0 Tachycardia, unspecified; E87.6 Hypokalemia; E87.0 Hyperosmolality and hypernatremia
CPT/HCPCS: 36415; 36600; 71045-TC-FY; 74176-TC; 76700-TC; 76775-TC; 80048; 80053; 81003; 82248; 82803; 82962; 83605; 83735; 84100; 84443; 84484; 85025; 85027; 85384; 85610; 85730; 87040; 87070; 87081; 87086; 87186; 87205; 93005; 93010; 93306-TC; 94002; 94640; 99291; C9803; G0480; J0131; J0475; J1644; U0003